=== PATIENT | female | born 1960 | race African-American/Black ===

== ENCOUNTER → 2025-06-18 | Day surgery (SDC) | payer BC ==
[~2025-06-18] MED LIST: ADK; ATENOLOL50 MG PO; DIM PLUS CDG C1 EACH; ELIQUIS5 MG PO; FLECTOR1 EACH TD; HYDROMORPHONE HC2 MG PO; JARDIANCE10 MG PO; LIDOCAINE HCL 10 MG/ML VIAL INJ ONE; LIDOCAINE HCL 2% LOCAL INJ 5 ML SDV VIAL INJ ONE; LIPITOR20 MG PO; MIDAZOLAM HCL 2 MG/2 ML VIAL ONE; OZEMPIC2 MG/0.75; PANTOPRAZOLE SO40 MG PO; PROBIOTIC & AC1 EACH PO; PROPOFOL IV EMULSION 50 ML IV ONE; TIZANIDINE HCL4 MG PO; VALSARTAN-HCTZ1 EAC3 PO; VENTOLIN HFA18 GM INH; VITAMIN C1000 MG PO; ZINC30 M1; ZYRTEC10 M3
[2025-06-18] MEDS: LACTATED RINGER'S 1,000 ML ONE (07:31)
[2025-06-18 08:00] LABS: BASOPHILS % 0.4 % (0.0-1.0); EOSINOPHILS % 0.7 % (0.0-6.0); LYMPHOCYTES % 16.9 % (18.0-39.1); MONOCYTES % 6.0 % (4.4-11.3); NEUTROPHILS % 75.8 % (38.7-80.0); RED CELL DISTRIBUTION WIDTH 14.4 % (11.7-14.4)
[2025-06-18 09:27] VITALS: TEMP 98.1
[2025-06-18 09:55] VITALS: BP 120/81; PULSE 72; RESP 16; O2SAT 98
== END | disposition home or self-care (01) ==
LOC: OR 07:01
PROVIDERS: ATTEND Internal Medicine Gastroenterology
DX: K21.9 Gastro-esophageal reflux disease without esophagitis (principal); D12.3 Benign neoplasm of transverse colon; K29.50 Unspecified chronic gastritis without bleeding; K44.9 Diaphragmatic hernia without obstruction or gangrene; K57.30 Diverticulosis of large intestine without perforation or abscess without bleeding; K59.00 Constipation, unspecified; K64.8 Other hemorrhoids; K76.0 Fatty (change of) liver, not elsewhere classified; Z98.84 Bariatric surgery status; Z90.49 Acquired absence of other specified parts of digestive tract; D64.9 Anemia, unspecified; I10 Essential (primary) hypertension; E11.9 Type 2 diabetes mellitus without complications; E78.5 Hyperlipidemia, unspecified; R74.8 Abnormal levels of other serum enzymes; I49.9 Cardiac arrhythmia, unspecified; I20.9 Angina pectoris, unspecified; M06.9 Rheumatoid arthritis, unspecified; M19.90 Unspecified osteoarthritis, unspecified site; Z88.6 Allergy status to analgesic agent; Z88.8 Allergy status to other drugs, medicaments and biological substances; Z91.018 Allergy to other foods; Z79.84 Long term (current) use of oral hypoglycemic drugs; Z79.85 Long-term (current) use of injectable non-insulin antidiabetic drugs; Z79.899 Other long term (current) drug therapy; Z79.02 Long term (current) use of antithrombotics/antiplatelets; Z68.31 Body mass index [BMI] 31.0-31.9, adult; Z87.898 Personal history of other specified conditions; Z98.890 Other specified postprocedural states
CPT/HCPCS: 36415; 43239; 45384; 82948; 85025; J2003; J2250; J2704; J7121